=== PATIENT | female | born 1985 | race Caucasian/White ===

== ENCOUNTER → 2020-11-04 07:53 | Outpatient (CLI) | payer OTHER, SELFPAY ==
--- NOTE | ~2020-11-04 | US_ITS ---
EXAMINATION: US OB follow up DATE: 11/04/2020 08:22 INDICATION: Previous section. Estimated weight during third trimester of . TECHNIQUE: Real-time ultrasound of the pelvis was performed. The interpreting radiologist was not pre sent for the study. COMPARISON: None. FINDINGS: There is a single living fetus in vertex presentation. The placenta is posterior fundal and not low- lying. heart rate is 131 beats per minute (bpm). The amniotic fluid index is 13.9 cm, which is normal (5th%-95%: 7.9-24.9 cm at 35 weeks estimated gestational age). The following biometric data were obtained: BPD: 8.9 cm -> 35 weeks 6 days Head circumference: 32.1 cm -> 36 weeks 2 days Abdominal circumference: 31.8 cm -> 35 weeks 5 days Femur length: 6.8 cm -> 34 weeks 6 days These measurements are concordant. Head circumference to abdominal circumference ratio: 1.01 (normal range 0.93-1.09). Estimated weight: 2714 g (+/-) 407 g. or 6 lbs. 0 oz. (+/-) 14 oz. IMPRESSION: 1. Single living fetus in vertex presentation with heart rate of 131 bpm. 2. Gestational age by ultrasound of 35 weeks 5 day(s) +/- 2 week(s) 3 day(s) with ultrasound estimate d date of delivery (MOOK) of 12/04/2020. Estimated weight is 42nd percentile by Hadlock criteria when 12/03/2020 is used as the MOOK. Please correlate with clinical information or earlier ultrasounds for most accurate MOOK. 3. Normal amniotic fluid index of 13.9 cm. Reviewed, dictated and finalized at location A. PERSON IMPRESSION: 1. Single living fetus in vertex presentation with heart rate of 131 bpm. 2. Gestational age by ultrasound of 35 weeks 5 day(s) +/- 2 week(s) 3 day(s) wi th ultrasound estimated date of delivery (MOOK) of 12/04/2020. Estimated we ight is 42nd percentile by Hadlock criteria when 12/03/2020 is used as the MOOK. Please correlate with clinical information or earlier ultrasounds for most accu rate MOOK. 3. Normal amniotic fluid index of 13.9 cm.
== END ==
PROVIDERS: Visit Provider Obstetrics & Gynecology
DX: Z36.9 Encounter for antenatal screening, unspecified (principal); Z3A.35 35 weeks gestation of pregnancy
CPT/HCPCS: 76816

== ENCOUNTER 2020-11-29 10:35 | Outpatient (CLI) | payer OTHER, SELFPAY ==
[2020-11-29 10:54] LABS: Hematocrit 34.5 % (37.0-47.0); Hemoglobin 11.5 g/dL (12.0-15.0); Mean Corpuscular HGB Conc 33.3 g/dl (32-36); Mean Corpuscular Hemoglobin 29.7 pg (26-34); Mean Corpuscular Volume 89.1 fl (80-100); Mean Platelet Volume 10.7 fl (7.4-10.4); Platelet Count Result 245 k/mm3 (150-375); Red Blood Count 3.87 M/mm3 (4.2-5.4); Red Cell Distribution Width 13.8 % (11.5-14.5); White Blood Count 12.3 K/mm3 (4.5-10.0)
[2020-12-01 07:03] LABS: Rapid Plasma Reagin Non-Reactive (NonReactive)
== END 2020-11-29 10:36 | disposition home or self-care (01) ==
LOC: ANHLAB 10:37
PROVIDERS: Visit Provider Obstetrics & Gynecology
DX: Z34.93 Encounter for supervision of normal pregnancy, unspecified, third trimester (principal); Z3A.00 Weeks of gestation of pregnancy not specified
CPT/HCPCS: 36415; 85027; 86592; 86850; 86900; 86901

== ENCOUNTER 2020-12-01 10:04 | Inpatient (IN) | payer OTHER, SELFPAY ==
[2020-12-01] VITALS (41 sets, daily range): BP systolic 76–139; BP diastolic 49–84; PULSE 64–179; RESP 15–19; TEMP 36.3–37; O2SAT 96–100; BMI 48.4
--- NOTE | 2020-12-01 10:37 | LDADM ---
This patient, Ayanna Keller, was admitted to OB Post 117 on 12/01/20 at 10:04. Plans for labor, pain management and were discussed with patient. Patient/family oriented to hospital policies and general routines including ID bracelet, bed and alarms, visiting hours, pain management, procedures, bathroom and other care routines, personal items, smoking policy, room service/diet and guest tray routines, security routines, and visiting hours. Patient/Family are encouraged to report perceived risks to care and to ask questions if they do not understand what they are told or what they should do. See OBIX for further documentation.
[2020-12-01] MEDS: LACTATED RINGERS 1,000 ML 999 ML IV CONT ×2 (10:59→12:26)
--- NOTE | 2020-12-01 11:29 | WPDANESEPPF ---
Anes - Initial Pre Proc Eval Procedure: Operation Date: 12/01/20 12:00 Proposed Procedures p Repeat Section With Tubal Ligation - Renzo Martinez MD Date/Time: 12/01/20 11:29 Surgeon: Renzo Martinez MD Pre Op Diagnosis: Desires Sterilization, Previous Patient Data Age: 35 Gender: F Height: 5 ft 2 in Weight: 120 kg Last Vital Signs Temp 36.9 C 12/01/20 11:03 Pulse 82 12/01/20 11:15 BP 137/77 12/01/20 11:15 Allergies Allergy/AdvReac Type Severity Reaction Status Date / Time sulfamethoxazole Allergy Intermediate SWELLING Unverified 02/19/14 15:36 trimethoprim Allergy Intermediate SWELLING Unverified 02/19/14 15:36 latex Allergy Mild RASH,SWELLI Unverified 02/19/14 15:44 NG,ITCHING Home Medications Medication Instructions Recorded Confirmed Type PNV cmb#95-ferrous fumarate-FA 1 tablet PO DAILY 11/07/20 11/07/20 History [] Patient hx anesthesia problems: none Family hx anesthesia problems: none PMFSH Past Medical History Medical History (Updated 12/01/20 @ 11:30 by Chaka Villanueva MD) Morbid obesity Surgical History Surgical History (Updated 12/01/20 @ 11:30 by Chaka Villanueva MD) History of section Family History Family History Other No pertinent family history Social History Social History Smoking status: Never smoker Second hand tobacco smoke exposure: No Substance use: never Gender identity (if verbalized by the patient): Female Spiritual care concerns: No Anes - Eval Final PreProcedure Day of Procedure 12/01/20 11:29 Patient weight: morbidly obese Heart: regular rate and rhythm Lungs: clear to auscultation Airway: Mallampati scale class II Neurological: alert and oriented Last oral intake: >/= 8 hours ASA classification: III Emergent: no Anesthetic plan: proceed Anesthesia type and monitoring: regional spinal and standard monitoring Informed Consent: The patient's anesthetic plan and its attendant risks and benefits were discussed with the patient/family/POA. Questions were solicited and answers provided to the satisfaction of the patient/family/POA.
--- NOTE | 2020-12-01 11:58 | PM.IMHP ---
H&P: HPI History of Present Illness Date/Time: 12/01/20 11:58 35 y/o at 39 5/7 weeks here for repeat . Also desires permanent contraception with tubal ligation. GBS pos. Chief Complaint: Here for c section Review of Systems Review of Systems: All systems reviewed & are unremarkable except as noted in HPI and below PMFSH Past Medical History Medical History Morbid obesity Surgical History Surgical History History of section Family History Family History Other No pertinent family history Social History Social History Smoking status: Never smoker Second hand tobacco smoke exposure: No Substance use: never Gender identity (if verbalized by the patient): Female Spiritual care concerns: No Meds Home Medications and Allergies Home Medications Medication Instructions Recorded Confirmed Type PNV cmb#95-ferrous fumarate-FA 1 tablet PO DAILY 11/07/20 11/07/20 History [] Allergies Allergy/AdvReac Type Severity Reaction Status Date / Time sulfamethoxazole Allergy Intermediate SWELLING Unverified 02/19/14 15:36 trimethoprim Allergy Intermediate SWELLING Unverified 02/19/14 15:36 latex Allergy Mild RASH,SWELLI Unverified 02/19/14 15:44 NG,ITCHING Vital Signs Vital Signs - 24 hr 12/01/20 11:03 12/01/20 11:15 12/01/20 11:30 Temperature 36.9 C Pulse Rate 85 82 80 Blood Pressure 126/77 137/77 120/81 12/01/20 11:45 Temperature Pulse Rate 88 Blood Pressure 117/80 Exam Const: Orientation/consciousness: patient oriented x3 Other: Well-developed, well-nourished female in no acute distress. Neck: Thyroid: thyroid normal Lymphatic: no lymphadenopathy noted (in neck, axilla or inguinal nodes) Resp: Effort & Inspection: normal respiratory effort Auscultation: clear to auscultation bilaterally Cardio: Rate: regular rate Rhythm: regular rhythm Heart sounds: S1 normal heart sound present and S2 normal heart sound present GI: Other: ABD: Soft, nontender, nondistended, gravid. No guarding or rebound tenderness. No hepatosplenomegaly. NST reactive. TOCO: no contractions. : General: Yes no CVA tenderness Other: Cervix fingertip/thick. Back/Spine/Pelvis: Back: no CVA tenderness Skin: General skin exam: normal color and no rashes or lesions noted Neuro: General: patient oriented x3 Extrem: Other: Extremities: nontender with no edema Psych: Mental Status: mental status grossly normal Affect: normal affect Assessment and Plan Assessment and plan (1) History of section: Code(s): Z98.891 - History of uterine scar from previous surgery Status: Inactive Assessment and Plan: A: IUP at 39 5/7 weeks with prior , desires repeat. Also desires tubal ligation. P: She understands there are temporary methods of contraception available to her. She understands that there are nonsurgical options as well as surgical options. She understands that tubal ligation will render her permanently sterile. She understands that there is a failure rate associated with tubal ligation, as well as an inherent ectopic gestation risk. Furthermore, she understands risks of surgery to include risks of anesthesia, risks of pain, infection, bleeding, blood products, thromboembolic phenomena and damage to adjacent structures such as bowel, bladder, ureters, blood vessels and nerves. She understands all these risks and elects to proceed with repeat delivery with concurrent bilateral tubal ligation. (2) Unwanted fertility: Code(s): Z30.09 - Encounter for other general counseling and advice on contraception Status: Acute (3) GBS (group B Streptococcus carrier), +RV culture, currently :
--- NOTE | 2020-12-01 12:03 | WPDHPUPDATE1 ---
History and Physical Update Update Date/Time: 12/01/20 12:03 History and Physical has been reviewed, including an updated exam of the patient. There are NO changes in the patient's condition. Risks, benefits, and alternatives have been discussed and questions answered. Patient agrees to proceed with procedure.
--- NOTE | 2020-12-01 13:30 | PM.OBPRVD ---
OB - Delivery Note Procedure Delivery date: 12/01/20 Procedure: Procedures Operation Date: 12/01/20 12:00 Repeat low transverse delivery with concurrent bilateral tubal ligation via modified Barnard technique Delivery monitor: external FHT and external uterine Route of delivery: Quantitative Blood Loss (ml): 275 Anesthesia type: Spinal Disposition: PACU Complications: None Narrative: The patient was taken to the operating room where she was prepared and draped in the usual sterile fashion in dorsal supine position with a leftward tilt. She received cefazolin preoperatively. Spinal anesthesia was found to be adequate. A Pfannenstiel skin incision was made along the previous scar line and was carried through to the underlying layer of the fascia. The fascia was incised in the midline and the incision was extended laterally. The fascia was dissected free of the underlying rectus muscles. The rectus muscles were in the midline. The peritoneum was identified, tented up and entered sharply. The peritoneal incision was extended superiorly and inferiorly with good visualization of the bladder. The bladder blade was placed. The vesicouterine peritoneum was identified, tented up and entered sharply. The incision was extended laterally and the bladder flap was developed. The bladder blade was replaced. The uterus was then incised sharply in a transverse fashion along the lower uterine segment. The incision was extended laterally. The 's head was delivered atraumatically to the sterile field, followed by the body. The nose and mouth were bulb suctioned. After a delay, the cord was clamped and cut. The infant was handed off the field. Cord blood was collected. The placenta was removed manually and was passed off the field. The uterus was exteriorized and cleared of all clots and debris. The uterine incision was reapproximated using 0 Monocryl in a running, locked fashion. Excellent hemostasis resulted as did excellent reapproximation of the normal anatomy. The left fallopian tube was then identified by following it out to the fimbriated end. It was grasped in the midportion with a [place] clamp and a loop of tube was ligated with a free tie of 0 plain gut. The tubal segment was then transected and the specimen was passed off to be sent to pathology. Hemostasis was excellent. Attention was turned to the right fallopian tube which was similarly identified, ligated and transected. Once again, excellent hemostasis resulted. The uterus was returned the abdomen. The pelvis was irrigated copiously with warmed normal saline. Rigorous hemostasis was assured. The fascial layer was reapproximated using 0 Vicryl in a running fashion. The skin was closed with a running, subcuticular stitch of 4 0 Vicryl. Dermaflex was applied externally. Sponge, lap, needle and instrument counts were correct. The patient was taken to the recovery room in stable condition. The infant went to the nursery in stable condition. I was present and scrubbed the entire procedure. Abie Baby Date of : 12/01/20 Time of : 13:03 Weeks of gestation at delivery: 39 gender: Female Weight (pounds): 7 Weight (ounces): 11 presentation: vertex Placenta delivery description: Manual Removal and Normal Configuration cord vessel description: 3 Vessels and Delayed Cord Clamping score one minute: 8 score five minutes: 9
--- NOTE | 2020-12-01 13:32 | P.DS_ITS ---
DS: Admitting Diagnosis Admitting Diagnosis Admitting Diagnosis: IUP at 39 5/7 Prior Desired sterility DS: Discharge Diagnosis Discharge Diagnosis (1) GBS (group B Streptococcus carrier), +RV culture, currently : Code(s): O99.820 - Streptococcus B carrier state complicating Status: Acute (2) Unwanted fertility: Code(s): Z30.09 - Encounter for other general counseling and advice on contraception Status: Acute (3) History of section: Code(s): Z98.891 - History of uterine scar from previous surgery Status: Acute OB - DS: Summary OB Procedures : None OB Procedures Intrapartum: and Tubal ligation OB Procedures: : None Peripartum Data Procedures: Procedures Operation Date: 12/01/20 12:00 <No data on this case meets the specified criteria> Repeat LTCS with BTL Discharge Plan Discharge Attending physician on discharge: Renzo Martinez Discharging Clinician: Renzo Martinez Patient Disposition: Home, Self-Care Activity: may shower, may drive after 2 weeks and pelvic rest Diet: regular Wound Care Instructions: incision open to air Discharge Instructions: Call or return if temperature above 100.4? F, increased abdominal pain, increased vaginal bleeding or any new problems. Stand Alone Forms: General Discharge Information Follow-up/Referrals: Renzo Martinez MD [Physician] - 4 Weeks Discharge Medications: New ibuprofen 600 mg tablet 600 mg PO Q6H PRN (Reason: cramps) Qty: 30 RF: 0 ferrous sulfate 325 mg (65 mg iron) tablet 325 mg PO DAILY Qty: 30 RF: 0 hydrocodone-acetaminophen 5-325 mg tablet 1 - 2 tablet PO Q6H PRN (Reason: pain) Qty: 30 RF: 0 No Action PNV cmb#95-ferrous fumarate-FA [] 28 mg iron- 800 mcg Tablet 1 tablet PO DAILY RF: 0 Date of admission: 12/01/20 10:04 Primary Care Provider: PHYSICIAN,PROMOTIONAL MODEL Admitting Provider: Renzo Martinez Attending physician on admission: Renzo Martinez Condition: Stable
[2020-12-01] MEDS: MORPHINE SULFATE (*CRX) 2 MG/ML INJ IV PUSH (15:27)
[2020-12-01] MEDS: diphenhydrAMINE HCl INJ 50 MG/ML VIAL 25 MG IV PUSH (15:27)
[2020-12-01] MEDS: OXYTOCIN 30 UNITS/NS 500 ML 30 UNITS/500 ML BAG 125 UNITS IV CONT (15:46)
--- NOTE | 2020-12-01 18:35 | OBPPTRN ---
1558 Patient transferred to post room #288 via stretcher. Support person present. Oriented to unit, room, information board, rooming in, admission packet and security measures. Patient verbalizes understanding.
[2020-12-01] MEDS: HYDROcodone/acetaminophen (*CRX) 10-325 MG TABLET 1 TAB PO (22:09)
[2020-12-02 04:30] VITALS: BP 120/75; PULSE 88; RESP 17; TEMP 36.8; O2SAT 96
[2020-12-02] MEDS: HYDROcodone/acetaminophen (*CRX) 5-325 MG TABLET 1 TAB PO ×5 (04:39→20:04)
[2020-12-02 05:15] LABS: Basophils Absolute Auto 0.1 K/mm3 (0.0-0.1); Basophils Percent Auto 0.4 % (0.2-1.2); Eosinophils Absolute Auto 0.1 K/mm3 (0-0.3); Eosinophils Percent Auto 0.5 % (0-4.4); Hematocrit 30.4 % (37.0-47.0); Hemoglobin 9.8 g/dL (12.0-15.0); Immature Granulocyte Absolute 0.07 K/mm3 (0.00-0.031); Immature Granulocyte Percent A 0.5 % (0-0.5); Lymphocytes Absolute Auto 2.49 K/mm3 (0.9-3.2); Lymphocytes Percent Auto 19.4 % (18.3-44.2); Mean Corpuscular HGB Conc 32.2 g/dl (32-36); Mean Corpuscular Hemoglobin 29.4 pg (26-34); Mean Corpuscular Volume 91.3 fl (80-100); Mean Platelet Volume 11.3 fl (7.4-10.4); Monocytes Absolute Auto 0.8 K/mm3 (0.1-0.6); Monocytes Percent Auto 6.5 % (2.6-8.5); Neutrophils Absolute Auto 9.3 K/mm3 (1.3-6.7); Neutrophils Percent Auto 72.7 % (45.5-73.1); Platelet Count Result 227 k/mm3 (150-375); Red Blood Count 3.33 M/mm3 (4.2-5.4); White Blood Count 12.9 K/mm3 (4.5-10.0)
[2020-12-02] MEDS: MULTIVIT/MIN/PREN/FOL AC/IRON TABLET 1 TAB PO (07:57)
[2020-12-02] MEDS: KETOROLAC 30 MG/ML VIAL (*BKC) IV PUSH ×2 (07:57→13:52)
[2020-12-02] MEDS: SIMETHICONE 80 MG TAB.CHEW PO ×3 (07:58→20:04)
[2020-12-02] MEDS: POLYSACCHARIDE IRON COMPLEX 150 MG CAPSULE PO ×2 (07:58→16:04)
[2020-12-02] MEDS: DOCUSATE SODIUM 100 MG CAPSULE PO ×2 (07:58→16:04)
[2020-12-02 08:00] VITALS: BP 110/72; PULSE 84; RESP 18; TEMP 36.6
--- NOTE | 2020-12-02 08:15 | PC.NURSE ---
Mother called out for assist with feeding. Consulted with patient, mother reports has fed well since . Mother reports she has difficulties with latching due to her nipples turn down and had difficulties with obtaining latch, once on is freq on and off losing the latch. Reviewed nipple care of lanolin, warm compresses several times per day as needed. Suggested to roll a few wash cloths under breast to help hold breast up and roll nipples up. This worked well, nipple is up and well aligned. Reviewed feeding cues, frequencies, duration of feedings, feeding elimination flow sheet, and signs of adequate intake. Demonstrated stimulation techniques to wake for feeding. Assisted with infant to breast. Reviewed positioning/alignment in cross cradle, holding breast in U hold and guided asymmetrical latch on. Infant was able to latch within a few attempts. nursed eagerly, with steady draws and frequent swallowing noted. Latch was shallow. Reviewed signs of a correct latch, effective nursing and suck swallow ratio. Infant was able to maintain latch. Mother reported tenderness at times, infant had slipped to shallow latch. Demonstrated how to adjust latch more deeply while feeding. Mother quickly reports she can feel is latched more deeply and has minimal tenderness. Suggested to stimulate while feeding to keep infant awake and nursing effectively for increased stimulation, increased intake and to assist with maintaining deep latch. Instructed mother to call out for RN assistance if she is unable to latch infant for feeding or she has discomfort with nursing.
--- NOTE | 2020-12-02 11:30 | PC.NURSE ---
Mother called out for assist with feeding. sleepy with no feeding cues noted. Demonstrated stimulation techniques to wake for feeding, infant easily awoken and ready to feed. Assisted with to breast. Reviewed positioning/alignment in cross cradle, holding breast in U hold and guided asymmetrical latch on. was able to latch within a few attempts. nursed eagerly, with steady draws and frequent swallowing noted. Latch was shallow. Reviewed signs of a correct latch, effective nursing and suck swallow ratio. was able to maintain latch. Mother reported tenderness at times, infant had slipped to shallow latch. Demonstrated how to adjust latch more deeply while feeding. Mother quickly reports she can feel infant is latched more deeply and has minimal tenderness. Suggested to stimulate infant while feeding to keep infant awake and nursing effectively for increased stimulation, increased intake and to assist with maintaining deep latch. Instructed mother to call out for RN assistance if she is unable to latch infant for feeding or she has discomfort with nursing.
[2020-12-02 12:00] VITALS: BP 106/67; PULSE 86; RESP 18; TEMP 36.4
--- NOTE | 2020-12-02 14:47 | WPDANLDPN2 ---
Anes-Prog Note L&D Date/Time: 12/02/20 14:47 Comfortable throughout: section Neuraxial method: spinal Epidural/Spinal procedure site: clean & non-tender Neuro status: Neuro function grossly intact. Cardiovascular status: normal Respiratory status: normal Airway patency: baseline Mental status: baseline Post-Op hydration status: normal Vital Signs: Last Vital Signs Temp 97.6 F 12/02/20 12:00 Pulse 86 12/02/20 12:00 Resp 18 12/02/20 12:00 BP 106/67 12/02/20 12:00 Pulse Ox 96 12/02/20 04:30 Pain score (VAS): 0/10 I/O: Intake & Output 12/01/20 12/02/20 12/02/20 23:59 07:59 15:59 Intake Total 2200 2300 Output Total 3350 900 Balance -1150 1400 Post-procedural complaints: none Patient feedback: Patient satisfied with anesthetic care.
--- NOTE | 2020-12-02 14:47 | WPDANLDNPN2 ---
Anes-Prog Note L&D-Neuraxial Date/Time: 12/02/20 14:47 Neuraxial medications: intrathecal PF morphine Opiod-related complaints: none Patient feedback: Patient satisfied with post-operative pain management.
[2020-12-02 18:50] VITALS: RESP 20; O2SAT 100
[2020-12-02 19:40] VITALS: BP 117/66; PULSE 91; RESP 20; TEMP 37; O2SAT 100
[2020-12-02] MEDS: IBUPROFEN 600 MG TABLET PO (20:05)
[2020-12-03] MEDS: HYDROcodone/acetaminophen (*CRX) 10-325 MG TABLET 1 TAB PO ×2 (00:05→05:35)
[2020-12-03] MEDS: HYDROcodone/acetaminophen (*CRX) 5-325 MG TABLET 1 TAB PO ×4 (03:31→20:46)
[2020-12-03] MEDS: IBUPROFEN 600 MG TABLET PO ×3 (03:32→15:43)
[2020-12-03 08:00] VITALS: BP 127/73; PULSE 84; RESP 18; TEMP 36.1; O2SAT 100
[2020-12-03] MEDS: POLYSACCHARIDE IRON COMPLEX 150 MG CAPSULE PO ×2 (08:14→15:44)
[2020-12-03] MEDS: SIMETHICONE 80 MG TAB.CHEW PO ×2 (08:14→15:43)
[2020-12-03] MEDS: DOCUSATE SODIUM 100 MG CAPSULE PO ×2 (08:14→15:44)
[2020-12-03] MEDS: MULTIVIT/MIN/PREN/FOL AC/IRON TABLET 1 TAB PO (08:14)
--- NOTE | 2020-12-03 12:30 | PC.NURSE ---
Consult with pt., mother reports is eagerly latching and more vigorous with nursing. Discussed infant weight loss, infant re weighed. Reviewed infant is feeding well with good output and jaundice is WNL, parents will supplement 15-20 mls after every other feeding.
--- NOTE | 2020-12-03 16:04 | PM.OBPNVD ---
OB - PN: Subj Subjective Date/time seen: 12/03/20 16:04 Narrative: Pain OK. Tolerating diet. OB - PN: Obj Data Labs CBC & Chem 7: 12/02/20 04:47 OB - PN A/P Plan Comments: A: POD#2, doing well. P: Routine care. Exam Narrative: Exam Narrative: AVSS I/O OK ABD soft, nontender, fundus firm. Incision c/d/i. EXT nontender
[2020-12-03 20:00] VITALS: BP 115/65; PULSE 96; RESP 16; TEMP 36.6; O2SAT 100
[2020-12-04] MEDS: IBUPROFEN 600 MG TABLET PO ×2 (01:51→07:57)
[2020-12-04] MEDS: HYDROcodone/acetaminophen (*CRX) 5-325 MG TABLET 1 TAB PO ×3 (01:51→11:56)
[2020-12-04] MEDS: POLYSACCHARIDE IRON COMPLEX 150 MG CAPSULE PO (07:58)
[2020-12-04] MEDS: DOCUSATE SODIUM 100 MG CAPSULE PO (07:58)
[2020-12-04] MEDS: SIMETHICONE 80 MG TAB.CHEW PO (07:59)
[2020-12-04] MEDS: MULTIVIT/MIN/PREN/FOL AC/IRON TABLET 1 TAB PO (08:00)
--- NOTE | 2020-12-04 09:29 | PM.OBPNVD ---
OB - PN: Subj Subjective Date/time seen: 12/04/20 09:29 Narrative: Pain OK. Tolerating diet. Would like to go home. OB - PN: Obj Data Labs CBC & Chem 7: 12/02/20 04:47 OB - PN A/P Plan Comments: A: POD#3, doing well. P: Home to f/u 4 weeks. Exam Narrative: Exam Narrative: AVSS ABD soft, nontender, fundus firm. Incision c/d/i. EXT nontender
[2020-12-04 10:23] VITALS: BP 120/75; PULSE 97; RESP 16; TEMP 36.4
[2020-12-05 09:45] VITALS: BP 125/78; PULSE 91; RESP 20; TEMP 36.7; O2SAT 100
== END 2020-12-04 13:49 | disposition home or self-care (01) | DRG 785 ==
LOC: ANHOBPP 10:09 → ANHOB2 16:03
PROVIDERS: Admitting Provider Obstetrics & Gynecology; Visit Provider Obstetrics & Gynecology
PROC: 10D00Z1 Extraction of Products of Conception, Low, Open Approach (ICD-10-PCS; CPT 59514; principal; 2020-12-01 12:00)
DX: O34.211 Maternal care for low transverse scar from previous cesarean delivery (principal); Z37.0 Single live birth; Z3A.39 39 weeks gestation of pregnancy; O99.214 Obesity complicating childbirth; E66.01 Morbid (severe) obesity due to excess calories; Z30.2 Encounter for sterilization; O99.824 Streptococcus B carrier state complicating childbirth; O99.02 Anemia complicating childbirth; D64.9 Anemia, unspecified
CPT/HCPCS: 36415; 85025; 88302; A9270; J0131; J1200; J1885; J2270; J2405; J2590; J7120

== ENCOUNTER 2021-04-18 09:02 | Emergency (ER) | payer OTHER, SELFPAY ==
[2021-04-18] VITALS (7 sets, daily range): BP systolic 117–143; BP diastolic 56–99; PULSE 95–125; RESP 18–23; TEMP 36.7–38.6; O2SAT 96–99
--- NOTE | ~2021-04-18 | CT_ITS ---
EXAMINATION: CTA chest PE protocol DATE: 04/18/2021 10:28 CDT INDICATION: Chest pain TECHNIQUE: Computed tomographic angiography (CTA) of the chest was performed with 100 mL Omnipaque-35 0 intravenous contrast. The dose-length product was 932.31 mGy-cm. Maximum intensity projection 3D-re constructions of the aorta and other arteries were constructed by the technologist on a separate work station. Automated exposure control and iterative reconstruction technique were employed. COMPARISON: None. FINDINGS: 3 mm right lower lobe nodule, superior segment, image 44, likely benign. There is groundgla ss opacification of the left upper lobe and right middle lobe, consistent with pneumonia. Study is te chnically adequate without evidence for pulmonary embolism. No significant pleural or pericardial eff usion. Heart size is normal. There is a possible left breast mass measuring 1.8 cm. Mild lower thorac ic spondylosis. No acute osseous abnormality. The upper abdomen is unremarkable. IMPRESSION: 1. No evidence for pulmonary. 2: Left upper and right middle lobe groundglass opacification, consistent with pneumonia. 3: Possible left breast mass measuring 1.8 cm. Correlation with diagnostic bilateral mammogram and le ft breast ultrasound recommended. Reviewed, dictated and finalized at location A. IMPRESSION: 1. No evidence for pulmonary. 2: Left upper and right middle lobe groundglass opacification, consistent with pneumonia. 3: Possible left breast mass measuring 1.8 cm. Correlation with diagnostic bila teral mammogram and left breast ultrasound recommended.
--- NOTE | ~2021-04-18 | XR_ITS ---
EXAMINATION: XR chest 2V 04/18/2021 09:42 INDICATION: Sternal chest pain PROCEDURE: 2 view chest COMPARISON: No prior studies for comparison. FINDINGS: The lungs are clear. The cardiomediastinal silhouette is within normal limits. There are no pleural effusions. There is no pneumothorax suspected. IMPRESSION: 1: NO ACUTE CARDIOPULMONARY DISEASE. Reviewed, dictated and finalized at location A.
--- NOTE | 2021-04-18 09:29 | ECG_ITS ---
Measurements Intervals [place] Rate: 106 P: 39 CO: 158 QRS: 47 QRSD: 94 T: 11 QT: 324 QTc: 431 Interpretive Statements SINUS TACHYCARDIA POSSIBLE LEFT ATRIAL ENLARGEMENT LOW QRS VOLTAGE IN PRECORDIAL LEADS INCOMPLETE RIGHT BUNDLE BRANCH BLOCK BORDERLINE ST-T WAVE ABNORMALITY- ANTEROLAT/INF LEADS ABNORMAL ECG Electronically Signed On 04-18-2021 21:24:14 CDT by Danny Connelly D.O.
[2021-04-18] MEDS: ONDANSETRON INJ 4 MG/2 ML VIAL IV PUSH (09:52)
[2021-04-18] MEDS: MORPHINE SULFATE (*CRX) 4 MG/ML INJ IV PUSH (09:53)
[2021-04-18 09:54] LABS: Basophils Percent Auto 0.2 % (0.2-1.2); Eosinophils Absolute Auto 0.1 K/mm3 (0-0.3); Eosinophils Percent Auto 0.6 % (0-4.4); Hemoglobin 13.4 g/dL (12.0-15.0); Immature Granulocyte Absolute 0.02 K/mm3 (0.00-0.031); Immature Granulocyte Percent A 0.2 % (0-0.5); Lymphocytes Absolute Auto 0.81 K/mm3 (0.9-3.2); Lymphocytes Percent Auto 7.7 % (18.3-44.2); Mean Corpuscular HGB Conc 33.5 g/dl (32-36); Mean Corpuscular Hemoglobin 30.2 pg (26-34); Mean Corpuscular Volume 90.3 fl (80-100); Mean Platelet Volume 9.7 fl (7.4-10.4); Monocytes Absolute Auto 0.6 K/mm3 (0.1-0.6); Monocytes Percent Auto 5.7 % (2.6-8.5); Neutrophils Percent Auto 85.6 % (45.5-73.1); Platelet Count Result 315 k/mm3 (150-375); Red Blood Count 4.43 M/mm3 (4.2-5.4); Red Cell Distribution Width 13.7 % (11.5-14.5); White Blood Count 10.5 K/mm3 (4.5-10.0)
[2021-04-18 09:57] LABS: Chloride 101 mmol/L (98-107)
[2021-04-18 09:59] LABS: INR 0.8; Prothrombin Time 11.3 Seconds (11.1-14.7)
[2021-04-18 10:00] LABS: Partial Thromboplastin Time 28.1 SECONDS (22.3-36.8)
[2021-04-18 10:02] LABS: D Dimer 0.75 ug/mL (<0.48)
[2021-04-18 10:05] LABS: Anion Gap 13 mmol/L (8-16); Blood Urea Nitrogen 12 mg/dL (7-17); Carbon Dioxide 23 mmol/L (22-30); Estimated CRCL calculation 90 ml/min; Estimated Glomerular Filt Rate > 60; Glucose 92 mg/dL (65-110); Potassium 4.1 mmol/L (3.4-5.0); Sodium 137 mmol/L (137-145)
[2021-04-18 10:11] LABS: Troponin I < 0.012 ng/mL (0.000-0.034)
[2021-04-18] MEDS: ACETAMINOPHEN 500 MG TABLET 1000 MG PO (12:34)
--- NOTE | 2021-04-18 12:51 | ED.GENADULT ---
HPI - General Adult General Chief complaint: Vaginal Bleeding Stated complaint: HEAVY MENSTRUAL PERIOD Time Seen by Provider: 04/18/21 09:15 History of Present Illness HPI narrative: Patient is a 36-year-old female who presents ER with multiple complaints. First complaint is heavy vaginal bleeding. Began last night. Reports she soaked through an overnight pad in the course of a couple hours and then soaked through another pad earlier this morning. She also developed chest pain that feels like a elephant is sitting on her chest early in the morning as well. No aggravating alleviating factors. She denies any exertional component. Denies fevers or chills or sweats. No productive cough. Denies lower extremity swelling. No previous history of DVT or coronary disease. Patient has not menstruated for over a year due to being and then giving . She currently breast-feeds. Related Data Home Medications Medication Instructions Recorded Confirmed PNV cmb#95-ferrous fumarate-FA 1 tablet PO DAILY 11/07/20 11/07/20 [] Allergies Allergy/AdvReac Type Severity Reaction Status Date / Time sulfamethoxazole Allergy Intermediate SWELLING Verified 04/18/21 09:13 trimethoprim Allergy Intermediate SWELLING Verified 04/18/21 09:13 latex Allergy Mild RASH,SWELLI Verified 04/18/21 09:13 NG,ITCHING Review of Systems Review of Systems: All systems reviewed & are unremarkable except as noted in HPI and below Constitutional: Constitutional: Denies chills, Denies fever(s) and Denies weakness ENT: Denies nasal congestion and Denies sore throat Cardiovascular: Cardiovascular: Reports chest pain, Denies rapid heart rate and Denies radiating jaw, neck or arm pain Respiratory: Respiratory: Denies cough and Denies dyspnea Gastrointestinal: Gastrointestinal: Denies abdominal pain, Denies nausea and Denies vomiting Genitourinary: Genitourinary: Reports abnormal vaginal bleeding, Denies nocturia, Denies dysuria and Denies vaginal discharge [facility] Past Medical History Medical History (Updated 04/18/21 @ 13:05 by Jamil Bentley MD) Morbid obesity Surgical History Surgical History (Updated 12/01/20 @ 13:33 by Renzo Martinez MD) History of section Family History Family History Other No pertinent family history Social History Social History Smoking status: Never smoker Second hand tobacco smoke exposure: No Substance use: never Gender identity (if verbalized by the patient): Female Spiritual care concerns: No Exam Narrative: GENERAL: Well-appearing, well-nourished, and in no acute distress. HEAD: Normocephalic, atraumatic. EYES: PERRL and EOMI. CHEST: Clear to auscultation. No respiratory distress. HEART: Regular rate and rhythm. Normal peripheral pulses. ABDOMEN: Soft, nontender, nondistended. EXTREMITIES: Normal range of motion. No edema. SKIN: Warm, dry, no rash. NEURO: Alert and oriented x3. PSYCH: Normal mood and affect. Course Course Emergency Course: Patient informed of results. She is currently unvaccinated against COVID-19. We will swab her since she has multilobar pneumonia. She also be started on oral antibiotics for home. Patient reports bleeding is decreased. Discussed with her that it is likely she is having heavier menstrual cycle due to her prolonged since she has had 1. Recommend follow-up with her cardiology physician for her bleeding but also discussed that she needs follow-up for breast mass seen on her CT scan. Vital Signs Vital signs: Vital Signs Temperature 98.1 F 04/18/21 09:09 Pulse Rate 105 H 04/18/21 09:09 Respiratory Rate 20 04/18/21 09:09 Blood Pressure 142/91 H 04/18/21 09:09 Pulse Oximetry 97 04/18/21 09:09 Temperature 101.5 F H 04/18/21 12:35 Pulse Rate 125 H 04/18/21 12:35 Respiratory Rate 20 04/18/21 12:35
[2021-04-18 13:11] LABS: Troponin I < 0.012 ng/mL (0.000-0.034)
[2021-04-20 17:31] LABS: SARS-CoV-2 RNA PCR Negative
== END 2021-04-18 13:30 | disposition home or self-care (01) ==
PROVIDERS: Emergency Provider Emergency Medicine
DX: N92.0 Excessive and frequent menstruation with regular cycle (principal); J18.9 Pneumonia, unspecified organism; N63.20 Unspecified lump in the left breast, unspecified quadrant; Z20.822 Contact with and (suspected) exposure to COVID-19; E66.01 Morbid (severe) obesity due to excess calories; Z68.42 Body mass index [BMI] 45.0-49.9, adult; R00.0 Tachycardia, unspecified; R94.31 Abnormal electrocardiogram [ECG] [EKG]; I45.10 Unspecified right bundle-branch block; R07.9 Chest pain, unspecified
CPT/HCPCS: 36415; 71046; 71275; 80048; 84484; 85025; 85380; 85610; 85730; 93005; 96374; 96375; 99284; A9270; C9803; J2270; J2405; Q9967; U0003; U0005

== ENCOUNTER → 2021-05-21 08:53 | Outpatient (CLI) | payer OTHER, SELFPAY ==
--- NOTE | ~2021-05-21 | MMUS_ITS ---
EXAMINATION: MM diagnostic carmen BI w [place], US breast LT limited HISTORY: Possible left breast mass suggested on 04/18/2021 CT pulmonary scan TECHNIQUE: Full field bilateral ML, MLO and craniocaudal 3-D tomosynthesis images and spot upper inne r quadrant left 3-D Tomosynthesis images were performed and synthetic 2-D images were generated. CAD analysis was submitted and interpreted. High resolution upper inner quadrant left breast ultrasound w as performed. COMPARISON: 04/18/2021 CT pulmonary scan BREAST PARENCHYMAL COMPOSITION: The breasts are heterogeneously dense, which may obscure small masses . FINDINGS: MAMMOGRAPHIC FINDINGS: Questionable contiguous oval 8-10 mm circumscribed opacities in the upper inner left breast (MLO [place] synthesis image 76/102 and ML Tomosynthesis image 75/98; no definite correlate on CC Tomosynthesis vi ews). Upper inner quadrant left breast ultrasound examination was performed. Otherwise no suspicious mass, architectural distortion, malignant calcification, skin thickening or r etraction of either breast is noted. Occasional bilateral punctate benign appearing calcifications. ULTRASOUND: No suspicious mass, shadowing or cyst or other significant sonographic finding is identified in the u pper inner quadrant of the left breast. IMPRESSION: 1. No mammographic evidence of malignancy 2. Routine mammographic screening is recommended beginning at age 40 BI-RADS Category 1: Negative Reviewed, dictated and finalized at location A. IMPRESSION: 1. No mammographic evidence of malignancy 2. Routine mammographic screening is recommended beginning at age 40 BI-RADS Category 1: Negative
== END ==
PROVIDERS: Visit Provider Student in an Organized Health Care Education/Training Program
DX: R92.8 Other abnormal and inconclusive findings on diagnostic imaging of breast (principal)
CPT/HCPCS: 76642; 77062; 77066; G0279